=== PATIENT | male | born 1950 | race Caucasian/White ===

== ENCOUNTER 2024-07-05 06:34 | Day surgery (SDC) | payer MEDICARE, OTHER ==
[~2024-07-05] VITALS: Ht 182.9 cm; Wt 92.2 kg
[~2024-07-05 06:34] MED LIST: Balanced Salt Epinephrine Irrigation Solution 500 mL IR SCH; Lidocaine HCl/Pf 1% 5 ML VIAL XX SCH; Moxifloxacin HCL 0.5 MG/0.1 ML 0.4MLSYR RIGHTEYE SCH; PHENYLEPHRINE\\TROPICAMIDE\\TETRACAINE OPHTHALMIC DILATING SOLN RIGHTEYE PRN; Povidone-Iodine 450 DROP/30 ML Solution RIGHTEYE SCH
[2024-07-05] MEDS ORDERED: ASPI81CH PO (07:10)
[2024-07-05] MEDS ORDERED: ATORVASTATIN CA80 M1 PO (07:10)
[2024-07-05] MEDS ORDERED: OLMSRTN-AMLDPN1 EAC8 PO (07:10)
[2024-07-05] MEDS ORDERED: Midazolam HCl 1MG / ML 2ML Vial ONE (07:40)
[2024-07-05] MEDS ORDERED: FentaNYL Citrate 50 MCG/ML 2 ML Injection ONE (07:40)
[2024-07-05] MEDS ORDERED: Tetracaine HCl 0.5% Opth Soln 15 ml RIGHTEYE ONE (07:56)
[2024-07-05 08:23] VITALS: BP 129/85
== END 2024-07-05 08:37 | disposition home or self-care (01) ==
LOC: ORSCSDS 06:34
PROVIDERS: Student in an Organized Health Care Education/Training Program
PROC: 08RJ3JZ Replacement of Right Lens with Synthetic Substitute, Percutaneous Approach (ICD-10-PCS; principal; 2024-07-05 08:00)
DX: H25.813 Combined forms of age-related cataract, bilateral (principal); I10 Essential (primary) hypertension; I25.10 Atherosclerotic heart disease of native coronary artery without angina pectoris; I25.2 Old myocardial infarction; Z79.82 Long term (current) use of aspirin; Z79.899 Other long term (current) drug therapy
CPT/HCPCS: J2250; J3010; V2632